=== PATIENT | male | born 1995 | race African-American/Black ===

== ENCOUNTER 2017-08-16 12:00 | Emergency (ER) | payer SELFPAY ==
[2017-08-16 12:06] VITALS: BP 115/66
[2017-08-16] MEDS ORDERED: PROMETHAZINE HCL 25 MG TABLET PO ONE (12:12)
--- NOTE | 2017-08-16 12:17 | ER Document Report ---
ED General - General Chief Complaint: Dizziness Stated Complaint: STOMACH PAIN Time Seen by Provider: 08/16/17 12:08 Notes: 21-year-old male here with 1 day of lightheadedness nausea vomiting and abdominal cramping. He has not tried taking anything for the symptoms. He denies diarrhea fevers chills. No known sick contacts. He is here today because 30 minutes ago, he had an episode of vomiting. TRAVEL OUTSIDE OF THE [place] IN LAST 30 DAYS: No - Related Data Allergies/Adverse Reactions: No Known Allergies Allergy (Verified 08/16/17 12:08) Past Medical History - Social History Smoking Status: Unknown if Ever Smoked Family History: None - Immunizations Immunizations up to date: Yes Review of Systems - Review of Systems Notes: See history of present illness for pertinent positive review of systems; otherwise all review of systems have been reviewed and are negative Physical Exam - Vital signs Vitals: Temp Pulse Resp BP Pulse Ox 98.4 F 52 L 16 115/66 100 08/16/17 12:04 08/16/17 12:04 08/16/17 12:04 08/16/17 12:04 08/16/17 12:04 - Notes Notes: PHYSICAL EXAMINATION: GENERAL: Well-appearing and in no acute distress. HEAD: Atraumatic, normocephalic. EYES: Pupils equal round and reactive to light, extraocular movements intact, sclera anicteric, conjunctiva are normal. ENT: nares patent, oropharynx clear without exudates. Moist mucous membranes. NECK: Normal range of motion, supple without lymphadenopathy LUNGS: CTAB and equal. No wheezes rales or rhonchi. HEART: Regular rate and rhythm without murmurs ABDOMEN: Soft, no tenderness. No guarding, no rebound. No facial grimacing/ wincing EXTREMITIES: Normal range of motion, no pitting edema. No cyanosis. NEUROLOGICAL: Cranial nerves grossly intact. Normal sensory/motor exams. PSYCH: Normal mood, normal affect. SKIN: Warm, Dry, normal turgor, no rashes or lesions noted Course - Re-evaluation Re-evalutation: 08/16/17 12:17 MEDICAL DECISION MAKING: Concern for viral gastroenteritis He has no abdominal tenderness on exam Will give a dose of Phenergan here and prescription Zofran Phenergan Instructed follow-up PCP next day or few Patient understands and agrees to the plan of care - Vital Signs Vital signs: Temp Pulse Resp BP Pulse Ox 98.4 F 52 L 16 115/66 100 08/16/17 12:04 08/16/17 12:04 08/16/17 12:04 08/16/17 12:04 08/16/17 12:04 Discharge - Discharge Clinical Impression: Nausea & vomiting Qualifiers: Vomiting type: unspecified Vomiting Intractability: non-intractable Qualified Code(s): R11.2 - Nausea with vomiting, unspecified Condition: Good Disposition: HOME, SELF-CARE Additional Instructions: Use prescribed medication as needed for vomiting. Use the Zofran first, if after 2 hours, it is not helping, try the Phenergan second. Stay hydrated with Gatorade. You were seen in the emergency department at [facility]. If you were given any sedating medications, be sure not to operate heavy machinery (example - driving) and be sure you are not too sedated to walk appropriately. Please followup with your primary physician in the next few days for further management/evaluation. Please return to the emergency department for worsening of symptoms or any symptom that you deem to be concerning or life-threatening. Thank you for allowing us to be part of your care. Prescriptions: Ondansetron [Zofran Odt 4 mg Tablet] 1 tab PO Q4H PRN #15 tab.rapdis PRN Reason: For Nausea/Vomiting Promethazine HCl [Phenergan 25 mg Tablet] 1 tab PO Q6H PRN #15 tablet PRN Reason:
== END 2017-08-16 12:22 | disposition home or self-care (01) ==
LOC: ER 12:00
DX: R11.2 Nausea with vomiting, unspecified (principal); R42 Dizziness and giddiness; R10.9 Unspecified abdominal pain
CPT/HCPCS: 99283